=== PATIENT | male | born 1990 | race Caucasian/White ===

== ENCOUNTER 2017-08-13 06:27 | Day surgery (SDC) | payer OTHER | END 2017-08-13 12:15 | disposition home or self-care (01) | LOC: CIR.AMB 06:27 | DX: S63.402A Traumatic rupture of unspecified ligament of right middle finger at metacarpophalangeal and interphalangeal joint, initial encounter (principal); S62.602B Fracture of unspecified phalanx of right middle finger, initial encounter for open fracture ==